=== PATIENT | female | born 1950 | race Caucasian/White ===

== ENCOUNTER 2021-09-13 08:46 | Outpatient (CLI) | payer MEDICARE, BC, SELFPAY ==
[2021-09-13 14:40] LABS: Chloride* 100 mmol/L (96-114); Potassium* 4.3 mmol/L (3.6-5.1); Sodium* 138 mmol/L (135-149)
[2021-09-13 14:42] LABS: Carbon Dioxide* 32 mmol/L (20-32); Cholesterol* 160 mg/dL (90-199); Creatinine* 0.7 mg/dL (0.5-1.5); Estimated Glomerular Filt Rate 94 ml/min
[2021-09-13 14:43] LABS: Blood Urea Nitrogen* 22 mg/dL (7-30); Calcium* 9.6 mg/dL (8.4-10.6); Glucose* 164 mg/dL (60-115); HDL Cholesterol* 52 mg/dL (>=50); LDL Cholesterol Calculated 84 mg/dL (<100); Triglycerides* 121 mg/dL (40-149)
== END 2021-09-13 08:47 | disposition home or self-care (01) ==
LOC: LONREF 08:48
PROVIDERS: PCP Family Medicine; Visit Provider Family Medicine
DX: I10 Essential (primary) hypertension (principal); E78.5 Hyperlipidemia, unspecified
CPT/HCPCS: 80048; 80061

== ENCOUNTER 2021-11-09 13:35 | Outpatient (CLI) | payer MEDICARE, BC, SELFPAY ==
--- NOTE | 2021-11-09 14:00 | CRLHL7_ITS ---
For Patients: As a result of the Century Cures Act, medical imaging exams and procedure reports are released immediately into your electronic medical record. You may view this report before your referring provider. If you have questions, please contact your health care provider. BILATERAL SCREENING MAMMOGRAM WITH COMPUTER-AIDED DETECTION AND TOMOSYNTHESIS TECHNIQUE: CC and MLO views were obtained. These mammographic images have been obtained using full-field digital technique. These mammographic images were interpreted with the benefit of computer-aided detection. Breast Tomosynthesis was used in this interpretation. COMPARISON FILM: 08/22/20, 03/24/18, 12/26/16. FINDINGS: There are scattered areas of fibroglandular density IMPRESSION: There is no radiographic evidence for malignancy. ASSESSMENT: BI-RADS Category 1: Negative RECOMMENDATION: Routine screening mammogram in 1 year. A lay language report of this examination will be provided to the patient. Tremaine Cook M.D. Diagnostic Radiologist [email or web address] PAUL/Dictated by: Tremaine Cook MD @ 11/10/2021 8:10:00 AM (Electronically Signed)
== END 2021-11-09 13:36 | disposition home or self-care (01) ==
PROVIDERS: PCP Family Medicine; Visit Provider Family Medicine
DX: Z12.31 Encounter for screening mammogram for malignant neoplasm of breast (principal)
CPT/HCPCS: 77063; 77067

== ENCOUNTER 2021-11-20 08:37 | Outpatient (CLI) | payer MEDICARE, BC, SELFPAY ==
[2021-11-20 13:21] LABS: Chloride* 98 mmol/L (96-114); Potassium* 4.6 mmol/L (3.6-5.1); Sodium* 139 mmol/L (135-149)
[2021-11-20 13:24] LABS: Blood Urea Nitrogen* 17 mg/dL (7-30); Carbon Dioxide* 33 mmol/L (20-32); Creatinine* 0.7 mg/dL (0.5-1.5); Estimated Glomerular Filt Rate 94 ml/min
[2021-11-20 13:25] LABS: Calcium* 9.8 mg/dL (8.4-10.6); Glucose* 158 mg/dL (60-115)
[2021-11-20 15:28] LABS: SARS PCR* Negative SARS-CoV-2 (Negative)
== END 2021-11-20 08:38 | disposition home or self-care (01) ==
PROVIDERS: PCP Family Medicine; Visit Provider Family Medicine
DX: Z20.822 Contact with and (suspected) exposure to COVID-19 (principal); Z01.818 Encounter for other preprocedural examination
CPT/HCPCS: 80048; 87635

== ENCOUNTER 2021-11-22 06:36 | Day surgery (SDC) | payer MEDICARE, BC, SELFPAY ==
[2021-11-22] MEDS: TETRACAINE 0.5% OPHTH 1 DROP EYE-LEFT ×2 (07:00→07:05)
[2021-11-22] MEDS: KETOROLAC OPHTH 0.5% 1 DROP EYE-LEFT ×3 (07:00→07:10)
[2021-11-22 07:18] VITALS: BMI 33.6
[2021-11-22 07:22] VITALS: BP 141/76; PULSE 57; RESP 18; TEMP 36.7; O2SAT 97
[2021-11-22] MEDS: SODIUM CHLORIDE 0.9 % (FLUSH) 10 ML SYRINGE IVF (07:37)
--- NOTE | 2021-11-22 07:39 | SUR.PREOP ---
The eye drops brought by the patient (Ketorolac and Prednisolone) are examined and I have determined they are labeled by the patient's pharmacy for this patient as prescribed by the surgeon. The bottles are intact, recently obtained and appear to be correct. miles castro rn
[2021-11-22] MEDS: TETRACAINE 0.5% OPHTH 2 DROP EYE-LEFT (07:58)
[2021-11-22] MEDS: BALANCED SALT IRRIG SOLN 15 ML EYE-LEFT (08:00)
[2021-11-22 08:20] VITALS: BP 113/89; PULSE 54; RESP 20; TEMP 36.2; O2SAT 96
--- NOTE | 2021-11-22 08:29 | W.ANESCHARGE ---
Anesthesia Charges Start Date/Time Anesthesia Start Date: 11/22/21 Anesthesia Start Time: 08:23 Stop Date/Time Anesthesia Stop Date: 11/22/21 Anesthesia Stop Time: 08:53 Summary Emergency: No
--- NOTE | 2021-11-22 09:49 | P.OPTPRC_ITS ---
Procedure Note Date of procedure: 11/22/21 Will [facility] bill your pro fee for this procedure?: Yes Procedure Description: SURGEON: Abi Gonzalez MD PREOPERATIVE DIAGNOSIS: Nuclear sclerotic cataract, left eye. POSTOPERATIVE DIAGNOSIS: Nuclear sclerotic cataract, left eye. NAME OF OPERATION: Phacoemulsification of cataract with posterior chamber intraocular lens implantation in the left eye. ANESTHESIA: Topical. ESTIMATED BLOOD LOSS: Less than 2 cc. COMPLICATIONS: None. PATHOLOGY SPECIMEN: None. INDICATIONS: See consult note for details. The risks, benefits and alternatives of the procedure were explained to the patient, who elected to proceed and sign ed informed consent to do so. PROCEDURE: The patient was brought to the pre-holding area where the left eye was identified as the operative eye. I placed my initials above this eye. The patient received eye drops consisting of 0.5% tetracaine, 1% tropicamide, 10% phenylephrine, and 0.5% ketorolac. The patient was then brought to the operating room where the left eye was again identified as the operative eye. The eye was prepped with Betadine and draped in the usual sterile ophthalmic fashion. A #15 super-sharp blade was used to create a paracentesis site. 1% non-preserved intracameral lidocaine was injected into the anterior chamber. Endocoat was injected into the anterior chamber. A 2.4 mm keratome was used to create a three-plane self-sealing incision 1 mm anterior to the temporal limbus. A cystotome was used to create an anterior capsular leaflet. The Utrata forceps were used to extend this to form a continuous curvilinear capsulorrhexis. Hydrodissection was performed. The cataract was removed with phacoemulsification using the smohjs-hju-qxyezdl technique. The irrigation and aspiration tip was used to remove the remaining cortex. Healon was injected into the capsular bag. An KACI ZCB00 intraocular lens of 20.5 diopters was injected into the capsular bag. The irrigation and aspiration tip was used to remove the remaining viscoelastic. Balanced salt solution on a cannula was used to hydrate the wound, and the wound was found to be watertight. The pupil was noted to be round. DISPOSITION: The patient was taken to the recovery room and discharged to home in stable condition. The patient was instructed to call me or go to the emergency department with any sudden change, including dramatic loss of vision, severe pain in the eye or eyebrow region, nausea, or vomiting. The patient will follow up in the clinic tomorrow morning. Surgeon: Abi Gonzalez MD
== END 2021-11-22 08:50 | disposition home or self-care (01) ==
PROVIDERS: PCP Family Medicine; Visit Provider Ophthalmology
PROC: (CPT 66984; principal; 2021-11-22 06:45)
DX: H25.12 Age-related nuclear cataract, left eye (principal)
CPT/HCPCS: 66984; 00142; 01402; 82962; A9270; J2250; J3010; V2632

== ENCOUNTER 2021-12-04 09:05 | Outpatient (CLI) | payer MEDICARE, BC, SELFPAY ==
[2021-12-04 14:39] LABS: SARS PCR* Negative SARS-CoV-2 (Negative)
== END 2021-12-04 09:06 | disposition home or self-care (01) ==
LOC: LONREF 09:05
PROVIDERS: PCP Family Medicine; Visit Provider Ophthalmology
DX: Z20.822 Contact with and (suspected) exposure to COVID-19 (principal)
CPT/HCPCS: 87635

== ENCOUNTER 2021-12-06 06:47 | Day surgery (SDC) | payer MEDICARE, BC, SELFPAY ==
[2021-12-06] MEDS: TETRACAINE 0.5% OPHTH 1 DROP EYE-RIGHT ×2 (07:10→07:18)
[2021-12-06] MEDS: KETOROLAC OPHTH 0.5% 1 DROP EYE-RIGHT ×3 (07:16→07:31)
[2021-12-06 07:18] VITALS: BMI 33.6
[2021-12-06 07:21] VITALS: BP 151/80; PULSE 53; RESP 16; TEMP 36.5; O2SAT 97
[2021-12-06] MEDS: TETRACAINE 0.5% OPHTH 2 DROP EYE-RIGHT (07:58)
[2021-12-06] MEDS: BALANCED SALT IRRIG SOLN 15 ML EYE-RIGHT (08:02)
[2021-12-06 08:23] VITALS: BP 112/87; PULSE 48; RESP 16; TEMP 36.6; O2SAT 97
--- NOTE | 2021-12-06 08:24 | W.ANESCHARGE ---
Anesthesia Charges Start Date/Time Anesthesia Start Date: 12/06/21 Anesthesia Start Time: 07:55 Stop Date/Time Anesthesia Stop Date: 12/06/21 Anesthesia Stop Time: 08:25 Summary Emergency: No
--- NOTE | 2021-12-06 08:32 | P.OPTPRC_ITS ---
Procedure Note Date of procedure: 12/06/21 Will [facility] bill your pro fee for this procedure?: Yes Procedure Description: SURGEON: Abi Gonzalez MD PREOPERATIVE DIAGNOSIS: Nuclear sclerotic cataract, right eye. POSTOPERATIVE DIAGNOSIS: Nuclear sclerotic cataract, right eye. NAME OF OPERATION: Phacoemulsification of cataract with posterior chamber intraocular lens implantation in the right eye. ANESTHESIA: Topical. ESTIMATED BLOOD LOSS: Less than 2 cc. COMPLICATIONS: None. PATHOLOGY SPECIMEN: None. INDICATIONS: See consult note for details. The risks, benefits and alternatives of the procedure were explained to the patient, who elected to proceed and s igned informed consent to do so. PROCEDURE: The patient was brought to the pre-holding area where the right eye was identified as the operative eye. I placed my initials above this eye. The patient received eye drops consisting of 0.5% tetracaine, 1% tropicamide, 10% phenylephrine, and 0.5% ketorolac. The patient was then brought to the operating room where the right eye was again identified as the operative eye. The eye was prepped with Betadine and draped in the usual sterile ophthalmic fashion. A #15 super-sharp blade was used to create a paracentesis site. 1% non-preserved intracameral lidocaine was injected into the anterior chamber. Endocoat was injected into the anterior chamber. A 2.4 mm keratome was used to create a three-plane self-sealing incision 1 mm anterior to the temporal limbus. A cystotome was used to create an anterior capsular leaflet. The Utrata forceps were used to extend this to form a continuous curvilinear capsulorrhexis. Hydrodissection was performed. The cataract was removed with phacoemulsification using the fhochj-but-rylnyrw technique. The irrigation and aspiration tip was used to remove the remaining cortex. Healon was injected into the capsular bag. An KACI ZCB00 intraocular lens of 21.0 diopters was injected into the capsular bag. The irrigation and aspiration tip was used to remove the remaining viscoelastic. Balanced salt solution on a cannula was used to hydrate the wound, and the wound was found to be watertight. The pupil was noted to be round. DISPOSITION: The patient was taken to the recovery room and discharged to home in stable condition. The patient was instructed to call me or go to the emergency department with any sudden change, including dramatic loss of vision, severe pain in the eye or eyebrow region, nausea, or vomiting. The patient will follow up in the clinic tomorrow morning. Surgeon: Abi Gonzalez MD
--- NOTE | 2021-12-06 08:40 | W.ANESCHARGE ---
Anesthesia Charges Start Date/Time Anesthesia Start Date: 12/06/21 Anesthesia Start Time: 07:55 Stop Date/Time Anesthesia Stop Date: 12/06/21 Anesthesia Stop Time: 08:25 Summary Emergency: No
== END 2021-12-06 09:00 | disposition home or self-care (01) ==
PROVIDERS: PCP Family Medicine; Visit Provider Ophthalmology
PROC: (CPT 66984; principal; 2021-12-06 06:45)
DX: H25.11 Age-related nuclear cataract, right eye (principal)
CPT/HCPCS: 66984; 00142; A9270; J2250; J3010; V2632

== ENCOUNTER 2022-08-14 08:22 | Outpatient (CLI) | payer MEDICARE, BC, SELFPAY | END 2022-08-14 08:23 | disposition home or self-care (01) | PROVIDERS: PCP Family Medicine; Visit Provider Family Medicine | DX: E11.9 Type 2 diabetes mellitus without complications (principal); I10 Essential (primary) hypertension; E78.5 Hyperlipidemia, unspecified | CPT/HCPCS: 80048; 80061 ==

== ENCOUNTER 2023-07-29 09:33 | Outpatient (CLI) | payer MEDICARE, BC, SELFPAY | END 2023-07-29 09:34 | disposition home or self-care (01) | PROVIDERS: PCP Family Medicine; Visit Provider Family Medicine | DX: E78.2 Mixed hyperlipidemia (principal); E11.65 Type 2 diabetes mellitus with hyperglycemia; R53.83 Other fatigue; Z13.29 Encounter for screening for other suspected endocrine disorder | CPT/HCPCS: 80048; 80061; 84443 ==

== ENCOUNTER 2023-08-15 07:19 | Day surgery (SDC) | payer MEDICARE, BC, SELFPAY ==
[2023-08-15] VITALS (23 sets, daily range): BP systolic 94–144; BP diastolic 54–75; PULSE 53–71; RESP 12–20; TEMP 36.1–37; O2SAT 93–99; BMI 32.9
[2023-08-15] MEDS: LACTATED RINGERS 1000 ML 1,000 ML 100 ML IV ×3 (08:05→12:00)
[2023-08-15] MEDS: SODIUM CHLORIDE 0.9 % (FLUSH) 10 ML SYRINGE IVF (08:07)
[2023-08-15] MEDS: CELECOXIB 200 MG CAPSULE PO (08:15)
[2023-08-15] MEDS: OXYCODONE (CR) 10 MG TAB.ER.12H PO (08:15)
[2023-08-15] MEDS: ACETAMINOPHEN 500 MG TABLET 1000 MG PO ×3 (08:15→20:11)
[2023-08-15] MEDS: MIDAZOLAM HCL 1 MG/ML inj IVP (08:27)
[2023-08-15] MEDS: fentaNYL 100 MCG/2 ML inj IVP (08:27)
--- NOTE | 2023-08-15 08:31 | SUR.PREOP ---
TIME?OUT:?821, left knee PT/RN/MDA?VERIFICATION?OF?SURGICAL?SITE,?PROCEDURE,?AND?CONSENT OBTAINED?PRIOR?TO?INVASIVE?PROCEDURE.
[2023-08-15] MEDS: methylPREDNISolone acetate 40 MG/ML VIAL INTRA-ARTI (09:35)
[2023-08-15] MEDS: TRANEXAMIC ACID 100 MG/ML INJ 1000 MG IV (09:41)
[2023-08-15] MEDS: CEFAZOLIN 2 GM INJ IVP (09:41)
--- NOTE | 2023-08-15 10:12 | W.PM.NB ---
Nerve Block Nerve Block Time Seen by Provider: 08:30 Date Seen: 08/15/23 Type of block requested by surgeon for post-operative analgesia: adductor canal Side: left Time out performed: Yes Verification of patient name: Yes Verification of date of : Yes Site marking: site marked Name of person performing procedure: Dandre Continuous monitoring Was continuous monitoring of O2 sat, B/P, chain builder loom control, recorded every 15 minutes?: Yes Procedure Checklist: sterile prep, needles and gloves Ultrasound guided. Images saved: Yes Medications given in 5ml increments after negative aspiration: Ropivicaine %: 0.5 mL: 20 Needle gauge: 20 Decadron (mg): 10 Precedex (mcg): 25 Patient tolerated procedure well: Yes Additional comments: Needle noted adjacent to nerve Block Charges Block Charge (with Pro Fee): Femoral Nerve Use of Ultrasound Machine for Block: Yes- US Guidance/pain block
--- NOTE | 2023-08-15 10:12 | W.PM.NB ---
Nerve Block Nerve Block Time Seen by Provider: 08:30 Date Seen: 08/15/23 Type of block requested by surgeon for post-operative analgesia: geniculars Side: left Time out performed: Yes Verification of patient name: Yes Verification of date of : Yes Site marking: site marked Name of person performing procedure: Dandre Continuous monitoring Was continuous monitoring of O2 sat, B/P, vehicle monitor technician, recorded every 15 minutes?: Yes Procedure Checklist: sterile prep, needles and gloves Medications given in 5ml increments after negative aspiration: Ropivicaine %: 0.5 mL: 9 Needle gauge: 25 Patient tolerated procedure well: Yes Block Charges Block Charge (with Pro Fee): Genicular Nerve Block Use of Ultrasound Machine for Block: No
--- NOTE | 2023-08-15 10:13 | W.ANESCHARGE ---
Anesthesia Charges Start Date/Time Anesthesia Start Date: 08/15/23 Anesthesia Start Time: 09:17 Stop Date/Time Anesthesia Stop Date: 08/15/23 Anesthesia Stop Time: 11:38 Summary Extremes of Age - Over 70 or under 1: MDA
--- NOTE | 2023-08-15 10:48 | CRLHL7_ITS ---
For Patients: As a result of the Cures Act, medical imaging exams and procedure reports are released immediately into your electronic medical record. You may view this report before your referring provider. If you have questions, please contact your health care provider. Indication: Postop TKA. Technique: Two views left knee Comparison: None. Findings: Left knee arthroplasty in anatomic alignment. No periprosthetic lucency or fracture. Expected postsurgical soft tissue changes. Impression: Left knee arthroplasty without radiographic evidence of complication. Dictated by Carlos Kauffman MD @ 08/15/2023 12:35:12 PM (Electronically Signed)
--- NOTE | 2023-08-15 10:50 | PM.ORPRC ---
Procedure Note Date of procedure: 08/15/23 Procedure: PREOPERATIVE DIAGNOSIS: Left knee osteoarthritis, right knee osteoarthritis POSTOPERATIVE DIAGNOSIS: Left knee osteoarthritis, right knee osteoarthritis NAME OF OPERATION: Left total knee arthroplasty, right knee steroid injection SURGEON: Mariano Gonzalez MD WIRELESS WATCHER: Hailee Donaldson PA-C ANESTHESIA: Spinal ESTIMATED BLOOD LOSS: 0 mL COMPLICATIONS: None SPECIMENS: None DRAINS: None PREOPERATIVE ANTIBIOTICS: Ancef 2 grams, antibiotic impregnated cement IMPLANTS: 1. J&J Attune # 5 posterior stabilized femur 2. #4 fixed-bearing tibia 3. # 5 posterior stabilized, 10 mm fixed-bearing polyethylene 4. 38 patella INDICATIONS: The patient is a 72-year-old with a longstanding history of severe, unrelenting left knee pain secondary to end-stage (grade IV) left knee osteoarthritis. Despite appropriate nonoperative management, including activity modification, anti-inflammatories, orte-qfg-pnnsoda pain medication, bracing, physical therapy, and injections they continue to have pain and disability. Operative intervention was offered. The risks, benefits and expected outcomes were discussed in detail. These included but were not limited to: Infection, bleeding, injury to blood vessel or nerve, venous thromboembolism. All questions were answered to their satisfaction. Use of an assistant women's tennis coach was necessary throughout the case for patient positioning and safety, soft tissue retraction, and closure. PROCEDURE: Spinal anesthesia was administered. The patient was placed supine on the operating table. The assistant women's tennis coach made sure the patient was positioned appropriately. The right knee was prepped in the usual fashion. The knee joint was infiltrated with 4 mL 0.25% Marcaine without epinephrine, 40 mg Depo-Medrol. The left lower extremity was prepped and draped in the usual sterile fashion. The limb was exsanguinated with the Jesus bandage. The pneumatic tourniquet was inflated to 300 mmHg. A standard anterior incision was made with the knee in flexion. Subcutaneous dissection was sharply taken through fascial layer #1. Full-thickness medial and lateral flaps were elevated. The assistant women's tennis coach retracted the soft tissues and protected them throughout the case. A standard subvastus approach was made. The patella was everted. The infrapatellar fat pad was debrided. The menisci and cruciate ligaments were sharply d?brided. Marginal osteophytes were d?brided with the rongeur. The drill was used to penetrate the femoral canal. The canal was aspirated and irrigated with pulse lavage. The intramedullary femoral guide was placed for a 5-degree valgus cut, removing 10 mm off the distal femur. The saw was used to make the cut. Whitesides line and the trans epicondylar axis were marked. The femoral sizing guide was pinned onto the distal femur. Three degrees of external rotation nicely parallels the transepicondylar axis. Pins were placed for posterior referencing. The four-in-one cutting guide was pinned onto the distal femur. The anterior, posterior, and chamfer cuts were made. The assistant women's tennis coach protected the collateral ligaments. The box cutting guide was pinned. The box cuts were made. The boxed trial was placed and was an excellent fit. Drill holes for the lugs were made. Attention was then turned to the proximal tibia. The extramedullary tibial guide was placed for a neutral varus/valgus cut with 5 degrees of posterior slope, removing 2 mm based off the medial tibial surface. The assistant women's tennis coach protected the collateral ligaments and the neurovascular bundle. The saw was used to make the cut. Trial components were placed. The knee was nicely balanced in both flexion and extension. The trial components were removed. The tray was placed in appropriate rotation, parallel to our tibial cutting pins. It was pinned by the assistant women's tennis coach and the drill and the punch were used. The tray was removed. The punch was used again. We placed a bone plug in the femoral canal. Attention was then turned to the patella. [place] patellar thickness was 23 mm. The lobster claw resection guide was used with the 9.5 mm steven. The saw was used to make the cut. Drill holes were made by the assistant women's tennis coach. The trial was placed and was an excellent fit. Cancellous surfaces were irrigated with pulse lavage and thoroughly dried by the assistant women's tennis coach. We cemented the tibial component, then the femoral component. We impacted the 10 mm polyethylene onto the tibial tray. The knee was brought into full extension. We then cemented the patellar component. Excessive cement was removed. The cement was allowed to harden. The knee was taken through a range of motion and was found to be nicely balanced in both flexion and extension. The patella tracks centrally. The assistant women's tennis coach did a three minute dilute Betadine solution soak. The assistant women's tennis coach irrigated the wound with 3 liters of normal saline via pulse lavage. The assistant women's tennis coach reapproximated the extensor mechanism with #1 Vicryl in an interrupted dxmvab-ot-xaliw fashion. The assistant women's tennis coach then ran the extensor mechanism with a #1 PDO Stratafix. The assistant women's tennis coach closed the subcutaneous tissues with a 3-0 Stratafix and the skin with a running 3-0 Stratafix in a subcuticular fashion. Glue was used to seal the skin. The assistant women's tennis coach placed a dry dressing. Sponge and needle counts were correct x2. The patient tolerated the procedure well. There were no apparent complications. They were carefully transferred to the hospital bed and taken to the postanesthesia care unit in satisfactory condition. PLAN: The patient will be mobilized with physical therapy. Aspirin will be used for DVT prophylaxis. They will be discharged to home once medically appropriate.
--- NOTE | 2023-08-15 11:38 | W.ANESCHARGE ---
Anesthesia Charges Start Date/Time Anesthesia Start Date: 08/15/23 Anesthesia Start Time: 09:17 Stop Date/Time Anesthesia Stop Date: 08/15/23 Anesthesia Stop Time: 11:38 Summary Extremes of Age - Over 70 or under 1: TELECOM ENGINEER
[2023-08-15] MEDS: LACTATED RINGERS 1000 ML 1,000 ML 75 ML IV (12:56)
[2023-08-15] MEDS: OXYCODONE 5 MG TABLET PO ×5 (14:02→22:06)
--- NOTE | 2023-08-15 15:05 | P.IMCN_ITS ---
Date of Consult Patient: [facility] Patient Consult date: 08/15/23 Requesting Physician: Orthopedics Primary Care Provider: Robe Yung MD Consult Narrative Reason for consult: Medical management of comorbidities Narrative: Edel Peterson is a 72 year old female who presented to the hospital today for an elective L TKA. There were no surgical or anesthetic complications noted during procedure. Patient's H&P reviewed, PCP is Dr Yung. Past medical history significant for: noninsulin dependent DM2, hyperlipidemia, essential HTN. History of blood clots: No Postoperative plan: Home with daughter She is feeling good when I see her postoperatively, has no concerns for the hospitalist team. Review of Systems Status of ROS: Reports: 10 or more systems reviewed and unremarkable except as noted in History and below [facility] Medical History (Updated 08/15/23 @ 16:57 by Jovanna Weiss MD) Lumbar compression fracture ?S32.000A - Wedge compression fracture of unspecified lumbar vertebra, initial encounter for closed fracture (ICD-10) Eustachian tube dysfunction ?H69.80 - Other specified disorders of Eustachian tube, unspecified ear (ICD- 10) Osteoporosis ?M81.0 - Age-related osteoporosis without current pathological fracture (ICD- 10) Restless leg ?G25.81 - Restless legs syndrome (ICD-10) Anxiety (09/23/08) ?F41.9 - Anxiety disorder, unspecified (ICD-10) Hypertriglyceridemia (09/23/08) ?E78.1 - Pure hyperglyceridemia (ICD-10) Hyperlipidemia (03/11/06) ?E78.5 - Hyperlipidemia, unspecified (ICD-10) Hypertension (09/23/08) ?I10 - Essential (primary) hypertension (ICD-10) Type 2 diabetes mellitus (09/23/08) ?E11.9 - Type 2 diabetes mellitus without complications (ICD-10) Surgical History (Updated 08/15/23 @ 17:01 by Jovanna Weiss MD) History of bilateral cataract extraction ?Z98.41 - Cataract extraction status, right eye (ICD-10) ?Z98.42 - Cataract extraction status, left eye (ICD-10) History of arthroplasty of finger of left hand (02/04/13) ?Z96.692 - Finger-joint replacement of left hand (ICD-10) S/P trigger finger release (03/11/14) ?Z98.890 - Other specified postprocedural states (ICD-10) H/O arthroscopy of left knee (08/11/14) ?Z98.890 - Other specified postprocedural states (ICD-10) S/P breast biopsy, left (11/22/15) ?Z98.890 - Other specified postprocedural states (ICD-10) S/P tendon repair ?Z98.890 - Other specified postprocedural states (ICD-10) H/O thumb surgery (03/11/14) ?Z98.890 - Other specified postprocedural states (ICD-10) History of tubal ligation (09/23/08) ?Z98.51 - Tubal ligation status (ICD-10) History of tonsillectomy (09/23/08) ?Z90.89 - Acquired absence of other organs (ICD-10) History of endometrial ablation (08/02/04) ?Z98.890 - Other specified postprocedural states (ICD-10) History of colonoscopy ?Z98.890 - Other specified postprocedural states (ICD-10) Social History What is your current living situation?: I presently have a place to live Problems where you live: no known problems In past 12 months, lack of transportation kept you from medical appts, meetings, work, or getting things needed for daily living: no In the past 12 mos, have been you worried that your food would run out before you had money to buy more?: never true In the past 12 mos, the food you bought just didn't last and you didn't have money to buy more?: never true Highest level of school completed/degree received: decline to answer Smoking Status: Never smoker Do you use any of these nicotine containing products: None Second hand tobacco smoke exposure: No How often do you have a drink containing alcohol: monthly or less Alcohol type: beer How many standard drinks containing alcohol do you have on a typical day: 1 or 2 How often do you have six or more drinks on one occasion: Never AUDIT-C Alcohol total score: 1 Non-prescribed substance use: denies use Caffeine: Yes How often does anyone, including family, friends and others, physically hurt you : never How often does anyone, including family, friends and others, insult or talk down to you: never How often does anyone, including family, friends and others, threaten you with harm: never How often does anyone, including family, friends and others, scream or curse at you: never Little interest or pleasure in doing things: several days Feeling down, depressed, or hopeless: several days Are you using contraception or practicing any form of control: No service: No Meds Home Medications and Allergies Home Medications ?Medication ?Instructions ?Recorded ?Confirmed ?Type cholecalciferol (vitamin D3) 50 2,000 unit PO DAILY 09/11/21 08/15/23 History mcg (2,000 unit) capsule aspirin 81 mg tablet,delayed 81 mg PO QDAY 09/12/21 08/15/23 History release calcium carbonate (Calcium 600) 1,200 mg PO QDAY 09/12/21 08/15/23 History coenzyme Q10 100 mg capsule mg PO DAILY 09/12/21 07/29/23 History glucosamine HCl 1,500 mg tablet 1,500 mg PO QDAY 09/12/21 08/15/23 History multivitamin (Daily Multi-Vitamin 1 tab PO QDAY 09/12/21 08/15/23 History tablet) zinc gluconate 30 mg tablet 30 mg PO QDAY 09/12/21 08/15/23 History glipizide 5 mg tablet 5 mg PO DAILY 02/04/23 08/15/23 History magnesium 250 mg tablet 500 mg PO QDAY 02/19/23 08/15/23 History ropinirole 0.5 mg tablet 0.5 mg PO QHS PRN 02/19/23 08/15/23 History Allergies Allergy/AdvReac Type Severity Reaction Status Date / Time nickel Allergy Intermediate Rash Verified 08/15/23 07:30 penicillin V Allergy Mild Rash Verified 08/15/23 07:30 Exam Narrative: Exam Narrative: GEN: Alert and oriented, nontoxic. She is sitting comfortably in bedside chair HEENT: EOMIs bilaterally, no scleral icterus CV: RRR, No concerning murmurs R: LCTA bilaterally without concerning wheezing, air movement is adequate Ext: wwp, no concerning edema Skin: No concerning skin lesions or rashes on exposed skin Neuro: Nonfocal Psych: Appropriate Const: Vital Signs, click to edit/add: Vital Signs - 24 hr 08/15/23 07:47 08/15/23 08:25 08/15/23 08:36 Temperature 97.9 F Pulse Rate 71 56 L 54 L Respiratory Rate 20 20 20 Blood Pressure 144/63 H 143/67 H 110/64 Pulse Oximetry 96 97 99 Oxygen Delivery Me thod Room Air Nasal Cannula Nasal Cannula Oxygen Flow Rate 3 3 08/15/23 11:35 08/15/23 11:40 08/15/23 11:45 Temperature 98.4 F Pulse Rate 55 L 54 L 57 L Respiratory Rate 12 12 12 Blood Pressure 94/59 L 99/54 L 99/73 Pulse Oximetry 94 94 95 Oxygen Delivery Me thod Room Air Room Air Room Air Oxygen Flow Rate 08/15/23 11:50 08/15/23 11:55 08/15/23 12:00 Temperature Pulse Rate 55 L 58 L 54 L Respiratory Rate 12 12 12 Blood Pressure 105/57 L 105/55 L 97/68 Pulse Oximetry 95 95 93 Oxygen Delivery Me thod Room Air Room Air Room Air Oxygen Flow Rate 08/15/23 12:00 08/15/23 12:00 08/15/23 12:05 Temperature 97.4 F L 97.4 F L 97.6 F Pulse Rate 54 L 53 L 54 L Respiratory Rate 14 16 12 Blood Pressure 98/61 113/74 104/62 Pulse Oximetry 95 96 94 Oxygen Delivery Me thod Room Air Room Air Room Air Oxygen Flow Rate 3 08/15/23 12:15 08/15/23 12:30 08/15/23 12:45 Temperature 97.4 F L 97 F L 97.4 F L Pulse Rate 55 L 57 L 56 L Respiratory Rate 14 16 16 Blood Pressure 110/63 108/61 110/67 Pulse Oximetry 95 94 95 Oxygen Delivery Me thod Room Air Room Air Room Air Oxygen Flow Rate 3 3 3 08/15/23 13:00 08/15/23 13:30 08/15/23 14:00 Temperature 97.4 F L 97.4 F L 97.5 F L Pulse Rate 56 L 53 L 61 Respiratory Rate 16 16 16 Blood Pressure 118/64 113/74 124/73 Pulse Oximetry 95 96 93 Oxygen Delivery Me thod Room Air Room Air Room Air Oxygen Flow Rate 3 3 Assessment and Plan Assessment and plan (1) Status post left knee replacement: Problem comment: - Dr. Gonzalez, 08/15/23 Status: Acute (2) Hypertriglyceridemia: Status: Acute (3) Hyperlipidemia: Status: Acute (4) Hypertension: Status: Acute (5) Type 2 diabetes mellitus: Problem comment: - [id number], last A1c 7.2 Status: Acute Plan - pain management and prophylaxis per orthopedic surgery team - continue home medications for comorbidities - anticipate routine postoperative course
[2023-08-15] MEDS: CEFAZOLIN 2 GM in 0.9 % SODIUM CHLORIDE Mini-bag 100 ML IVPB (16:55)
--- NOTE | 2023-08-15 18:25 | PC.NURSE ---
Nursing end of shift: Pt came BTF from PACU @ 1200. She is A&O, VSS and afebrile. Left knee dressing is covered by KAITY wrap- surgical site is MORGAN. Ice pack in place. Reports pain at 6-7/10 to anterior knee. PRN oxycodone given last @ 1800; providing adequate relief & pain comes down to 2-3/10 per pt. PIV in right hand is now SL and C/D/I as she is tolerating PO intake with no nausea. She is Ax1 with 2ww and gait belt for ambulation & transfers and reports no dizziness. Pt is urinating independently. CMS intact and SCD?s in place while in bed. Plan to discharge home tomorrow, 08/15, with her daughter & grandchildren staying with her. ?
[2023-08-15] MEDS: SENNOSIDES 1 TAB TABLET 2 TAB PO (20:12)
[2023-08-15] MEDS: ASPIRIN 81 MG TABLET EC PO (20:12)
[2023-08-15] MEDS: SIMVASTATIN 40 MG TABLET PO (20:13)
[2023-08-16] VITALS: BP 120/82; PULSE 68; RESP 16; TEMP 37.4; O2SAT 95
[2023-08-16] MEDS: CEFAZOLIN 2 GM in 0.9 % SODIUM CHLORIDE Mini-bag 100 ML IVPB (01:03)
[2023-08-16] MEDS: OXYCODONE 5 MG TABLET PO ×4 (01:03→10:04)
[2023-08-16] MEDS: ACETAMINOPHEN 500 MG TABLET 1000 MG PO ×2 (01:33→10:00)
[2023-08-16 01:42] VITALS: BP 125/61; PULSE 63; RESP 16; TEMP 37.4; O2SAT 95
[2023-08-16 06:35] LABS: Basophils Percent Auto 0.1 % (0.0-3.0); Hematocrit 31.9 % (33.0-51.0); Hemoglobin* 10.1 gm/dL (12.0-16.0); Immature Granulocytes Pct Auto 0.1 %; Lymphocytes Percent Auto 11.2 % (20-44); Mean Corpuscular HGB Conc 32 gm/dL (32-36); Mean Corpuscular Hemoglobin 28 pg (26-34); Mean Corpuscular Volume 90 fL (80-100); Monocytes Percent Auto 10.9 % (0.0-11.0); Neutrophils Percent Auto 77.7 % (42.0-72.0); Platelet Count* 294 K/uL (140-440); RDW Coefficient of Variation % 13.6 % (11.5-15.5); Red Blood Count 3.56 m/uL (4.00-5.20); White Blood Count* 13.35 K/uL (4.50-11.00)
[2023-08-16 06:44] LABS: Sodium* 134 mmol/L (135-149)
[2023-08-16 06:45] LABS: Potassium* 4.5 mmol/L (3.6-5.1)
[2023-08-16 06:47] LABS: Creatinine* 0.7 mg/dL (0.5-1.5); Estimated Glomerular Filt Rate 93 ml/min
[2023-08-16 06:48] LABS: Blood Urea Nitrogen* 25 mg/dL (7-30)
[2023-08-16 06:51] LABS: Slide Review Reflex No
[2023-08-16 06:53] LABS: INR 0.98 (0.91-1.10); Prothrombin Time 13.5 Seconds
--- NOTE | 2023-08-16 06:59 | PC.NURSE ---
END OF SHIFT NOTE: PT PLEASANT AND COOPERATIVE. A&Ox3. DENIES CP, SOB, N/V. AMBULATES WITH SBA AND 2WW, GB. VSS ON RA; AFEBRILE. ACTIVE ICE TO LEFT KNEE. LEFT KNEE PAIN 5-7/10 WITH RELIEF FROM SCHEDULED AND PRN PAIN MEDS. OXYCODONE SCANNED TWICE AT 2200, OMNICELL CHECKED FOR PREVIOUS DOSE REMOVED WITH CHARGE NURSE -LADAN Umana RN. VERIFIED THAT ORDERED 5MG X2TABS OF OXY REMOVED. CALL LIGHT WITHIN PT?S REACH.?
[2023-08-16 07:00] VITALS: BP 145/81; PULSE 66; RESP 16; TEMP 36.7; O2SAT 97
[2023-08-16] MEDS: glipiZIDE 5 MG TABLET PO (07:37)
--- NOTE | 2023-08-16 08:11 | PM.ORPN ---
Subjective Subjective Time Seen by Provider: 07:30 Date Seen: 08/16/23 Principal diagnosis: Post left total knee arthroplasty, right knee cortisone injection Interval history: Edel is comfortable this morning. She is ambulating well. She will discharge to home today. Ortho Exam Narrative Exam Narrative: Alert and oriented x3. Patient is in no acute distress. Converses without labored breathing. Hearing is grossly intact. Ambulates with a walker. Examination of the left knee shows the dressing is intact. Mild edema. CMS intact left lower extremity. Bilateral calves are soft and nontender. She is easily able to get out of the hospital bed, ambulate to the restroom this morning. Good quad control. Const Vital Signs, click to edit/add: Vital Signs - 24 hr 08/15/23 08:25 08/15/23 08:36 08/15/23 11:35 Temperature 98.4 F Pulse Rate 56 L 54 L 55 L Pulse Rate [Right Pulse Oximeter] Respiratory Rate 20 20 12 Blood Pressure 143/67 H 110/64 94/59 L Blood Pressure [Left Arm] Pulse Oximetry 97 99 94 Oxygen Delivery Method Nasal Cannula Nasal Cannula Room Air Oxygen Flow Rate 3 3 08/15/23 11:40 08/15/23 11:45 08/15/23 11:50 Temperature Pulse Rate 54 L 57 L 55 L Pulse Rate [Right Pulse Oximeter] Respiratory Rate 12 12 12 Blood Pressure 99/54 L 99/73 105/57 L Blood Pressure [Left Arm] Pulse Oximetry 94 95 95 Oxygen Delivery Method Room Air Room Air Room Air Oxygen Flow Rate 08/15/23 11:55 08/15/23 12:00 08/15/23 12:00 Temperature 97.4 F L Pulse Rate 58 L 54 L 54 L Pulse Rate [Right Pulse Oximeter] Respiratory Rate 12 12 14 Blood Pressure 105/55 L 97/68 98/61 Blood Pressure [Left Arm] Pulse Oximetry 95 93 95 Oxygen Delivery Method Room Air Room Air Room Air Oxygen Flow Rate 08/15/23 12:00 08/15/23 12:05 08/15/23 12:15 Temperature 97.4 F L 97.6 F 97.4 F L Pulse Rate 53 L 54 L 55 L Pulse Rate [Right Pulse Oximeter] Respiratory Rate 16 12 14 Blood Pressure 113/74 104/62 110/63 Blood Pressure [Left Arm] Pulse Oximetry 96 94 95 Oxygen Delivery Method Room Air Room Air Room Air Oxygen Flow Rate 3 3 08/15/23 12:30 08/15/23 12:45 08/15/23 13:00 Temperature 97 F L 97.4 F L 97.4 F L Pulse Rate 57 L 56 L 56 L Pulse Rate [Right Pulse Oximeter] Respiratory Rate 16 16 16 Blood Pressure 108/61 110/67 118/64 Blood Pressure [Left Arm] Pulse Oximetry 94 95 95 Oxygen Delivery Method Room Air Room Air Room Air Oxygen Flow Rate 3 3 3 08/15/23 13:30 08/15/23 14:00 08/15/23 15:00 Temperature 97.4 F L 97.5 F L Pulse Rate 53 L 61 Pulse Rate [Right Pulse Oximeter] 58 L Respiratory Rate 16 16 16 Blood Pressure 113/74 124/73 Blood Pressure [Left Arm] Pulse Oximetry 96 93 Oxygen Delivery Method Room Air Room Air Oxygen Flow Rate 3 08/15/23 15:00 08/15/23 15:00 08/15/23 16:00 Temperature 98.1 F 98 F Pulse Rate 58 L 61 Pulse Rate [Right Pulse Oximeter] Respiratory Rate 16 16 16 Blood Pressure 123/63 124/75 Blood Pressure [Left Arm] Pulse Oximetry 95 95 93 Oxygen Delivery Method Room Air Room Air Room Air Oxygen Flow Rate 08/15/23 17:00 08/15/23 18:10 08/15/23 19:24 Temperature 98.6 F 98 F 97.6 F Pulse Rate 67 61 Pulse Rate [Right Pulse Oximeter] 69 Respiratory Rate 16 16 16 Blood Pressure 122/69 111/61 Blood Pressure [Left Arm] 119/68 Pulse Oximetry 95 94 94 Oxygen Delivery Method Room Air Room Air Room Air Oxygen Flow Rate 08/15/23 20:11 08/15/23 20:55 08/16/23 00:00 Temperature 97.6 F 97.6 F Pulse Rate Pulse Rate [Right Pulse Oximeter] 68 Respiratory Rate 16 Blood Pressure Blood Pressure [Left Arm] Pulse Oximetry Oxygen Delivery Method Oxygen Flow Rate 08/16/23 00:00 08/16/23 00:00 08/16/23 01:42 Temperature 99.4 F 99.4 F Pulse Rate Pulse Rate [Right Pulse Oximeter] 68 63 Respiratory Rate 16 16 16 Blood Pressure Blood Pressure [Left Arm] 120/82 125/61 Pulse Oximetry 95 95 95 Oxygen Delivery Method Room Air Room Air Room Air Oxygen Flow Rate Assessment and Plan Assessment and plan (1) Status post left knee replacement: Problem details: - Dr. Gonzalez, 08/15/23 Status: Acute Assessment and Plan: Plan for discharge is today to home if they meet discharge criteria. DVT prophylaxis includes aspirin 81 mg twice daily x1 month, Compression stockings as needed for swelling. Frequent ambulation, every hour throughout the day. Remove dressing in 1 week. Observe wound and phone Orthopedics with any questions or concerns Return to clinic in 1 week for a wound check Return to clinic in 6 weeks with surgeon Minimize narcotic use. Wean off and discontinue soon as possible. Activities as tolerated. No strenuous activity. Outpatient physical therapy as scheduled. Ice and elevate the operative extremity. No restriction on ice.
[2023-08-16] MEDS: SENNOSIDES 1 TAB TABLET 2 TAB PO (10:01)
[2023-08-16] MEDS: PARoxetine 20 MG TABLET 40 MG PO (10:01)
[2023-08-16] MEDS: ASPIRIN 81 MG TABLET EC PO (10:01)
[2023-08-16] MEDS: FENOFIBRATE 145 MG TABLET 72.5 MG PO (10:07)
--- NOTE | 2023-08-16 12:02 | PC.NURSE ---
Discharge: Patient alert and oriented x4. Patient tolerated regular diet and drinking fluids with out c/o of nausea. Pain rates 8/10 but managed with PRN pain medication. Able to ambulate with a 2-wheeled walker, gait belt and stand by assist. Patient discharged to home at 1058 via wheelchair. Patient education given and discharge packet signed by patient and RN.
== END 2023-08-16 10:58 | disposition home or self-care (01) ==
LOC: OR 07:21 → MEDSURG 07:24
PROVIDERS: PCP Family Medicine; Visit Provider Orthopaedic Surgery
PROC: (CPT 27447; principal; 2023-08-15 08:45)
DX: M17.0 Bilateral primary osteoarthritis of knee (principal); G89.18 Other acute postprocedural pain; I10 Essential (primary) hypertension; E11.9 Type 2 diabetes mellitus without complications; M81.0 Age-related osteoporosis without current pathological fracture; E78.1 Pure hyperglyceridemia; E78.5 Hyperlipidemia, unspecified
CPT/HCPCS: 27447; 20610; 01402; 36415; 64447; 64454; 73560; 76942; 82565; 84132; 84295; 84520; 85025; 85610; 97110; 97116; 97161; 97165; 97530; 97535; 99100; A9270; C1776; J0690; J1010; J1100; J2250; J2704; J2795; J3010; J7120

== ENCOUNTER 2023-10-17 10:00 | Outpatient (RCR) | payer MEDICARE, BC, SELFPAY ==
--- NOTE | 2023-08-05 14:26 | PT.OPEX ---
PT [place] Outpatient Eval PT [facility] Outpatient Eval Start: 08/05/23 09:57 Freq: Status: Active Protocol: Document 08/05/23 11:13 SUSIE (Rec: 08/05/23 12:08 SUSIE [id number]) E-signed By Leandra Best DPT Physical Therapy Outpatient Evaluation Insurance Information Recert Due Date 11/03/23 Insurance Name Medicare B,[employer] Medical Diagnosis L knee OA L TKA 08/15/23 Treating Diagnosis L knee pain, impaired L knee ROM, impaired L knee/LE mobility/strength, limping/ antalgic gait Subjective Subjective Patient reports chronic L knee pain leading up to L TKA scheduled for 08/15/23. She has been wearing a brace on her L knee for support. She has not been using an AD. Amb without an AD with mildly limping, antalgic gait. She reports having a 4ww to use after surgery but feels she may need a FWW. She does not have a FWW or cane. States her daughter will be staying with her for at least a week after surgery. She has 3 stairs x 2 when entering from the tuck under garage. R railing and grab bars to use for support. States if she uses the back enter there are 3 stairs with R railing to enter to main level. Once inside, patient can stay on the main level. She has commode to use over the toilet . Walk in shower and tub shower, shower/tub chairs. She purchased a Pulsant ice cooler to use after surgery. Date of Last Physician Visit 06/19/23 Date of Surgery (If applicable) 08/15/23 Current Work Status Retired Precautions Treatment Precautions/Contraindications DM type II, HTN, depression, OA, osteoporosis Allergies - PCN, nickel Assessment Assessment/Impression Patient is a 72 year old female with L knee pain, impaired L knee ROM, impaired L knee/LE mobility/strength, limping/antalgic gait. She is scheduled for L TKA 08/15/23. She is seen in PT today for pre-op session to provide education/information on upcoming TKA surgery, safety information/HO, equipment instruction including use of FWW, and instruction in TKA exercises. Patient has a 4ww she would like to try after surgery but feels she will need a FWW at discharge. Patient instructed in and provided with handouts for TKA exercises, patient to perform them leading up to surgery. Reviewed PT/OT plan during hospital stay and patient is scheduled for OP PT post op. Patient's daughter will be staying with her for one week. 3 stairs x 2 with R railing and grab bars to enter from the garage. 3 stairs with R railing to enter from the back . Once inside, patient can stay on the main level. She has a commode to use over the toilet. Walk in shower and tub shower with shower chairs available to use after surgery . Patient would benefit from skilled PT for pain/sx management, improved knee ROM, improved knee/LE mobility/ strength, improved gait, balance/proprioception training, and establishment of HEP. Plan of Care Rehabilitation Potential Good Physical Therapy Goals 1. Patient will be educated in TKA pre/post-op safety, mobility, and exercises with HOs provided within one visit with patient returning to PT for post op treatment after L TKA surgery on 08/15/23. PT goals will be updated to TKA rehab goals when patient returns post op. Coordination/Communication With Referral Source Treatment Plan/Direct Interventions Gait Training,Manual Therapy, Therapeutic Exercises Frequency/Duration 1 pre-op session 2x/week post op Patient Will Be Discharged From Therapy Completion of LTG(s),Skills Plateau,Independent w/HEP, Independently Progressing Evaluation Billing Untimed Code Treatment Minutes 40 Complexity Moderate Certification Information Initial Certification Date 08/05/23 Ending Certification Date 11/03/23 Provider Signature Required Yes Provider Signature Shows Agreement With POC & Medical Necessity Physician NPI Number Write NPI# Here Physician Comment/Change : Physician Signature & Date Requested Please Sign/Date Here
== END 2024-02-14 23:59 | disposition home or self-care (01) ==
PROVIDERS: PCP Family Medicine; Visit Provider Orthopaedic Surgery
DX: M17.12 Unilateral primary osteoarthritis, left knee (principal); M25.562 Pain in left knee; Z74.09 Other reduced mobility; R26.89 Other abnormalities of gait and mobility; Z51.89 Encounter for other specified aftercare
CPT/HCPCS: 97110; 97162; 97164

== ENCOUNTER 2024-03-02 15:06 | Outpatient (CLI) | payer MEDICARE, BC, SELFPAY ==
--- NOTE | 2024-03-02 15:20 | CRLHL7_ITS ---
For Patients: As a result of the Century Cures Act, medical imaging exams and procedure reports are released immediately into your electronic medical record. You may view this report before your referring provider. If you have questions, please contact your health care provider. BILATERAL SCREENING MAMMOGRAM WITH COMPUTER-AIDED DETECTION AND TOMOSYNTHESIS TECHNIQUE: CC and MLO views were obtained. These mammographic images have been obtained using full-field digital technique. These mammographic images were interpreted with the benefit of computer-aided detection. Breast Tomosynthesis was used in this interpretation. COMPARISON FILM: 11/09/21, 08/22/20, 03/24/18. FINDINGS: There are scattered areas of fibroglandular density. IMPRESSION: There is no radiographic evidence for malignancy. ASSESSMENT: BI-RADS Category 1: Negative RECOMMENDATION: Routine screening mammogram in 1 year. A lay language report of this examination will be provided to the patient. Tremaine Cook M.D. Diagnostic Radiologist [email or web address] SP/Dictated by: Tremaine Cook MD @ 03/03/2024 9:23:00 AM (Electronically Signed)
== END 2024-03-02 15:07 | disposition home or self-care (01) ==
LOC: MAMMO 15:06
PROVIDERS: PCP Family Medicine; Visit Provider Family Medicine
DX: Z12.31 Encounter for screening mammogram for malignant neoplasm of breast (principal)
CPT/HCPCS: 77063; 77067

== ENCOUNTER 2024-03-19 09:01 | Outpatient (CLI) | payer MEDICARE, BC, SELFPAY | END 2024-03-19 09:02 | disposition home or self-care (01) | LOC: LKVREF 09:03 | PROVIDERS: PCP Family Medicine; Visit Provider Family Medicine | DX: I10 Essential (primary) hypertension (principal); Z01.818 Encounter for other preprocedural examination | CPT/HCPCS: 80048 ==

== ENCOUNTER 2024-04-17 12:25 | Outpatient (CLI) | payer MEDICARE, BC, SELFPAY ==
--- NOTE | 2024-04-17 14:07 | W.ANESCHARGE ---
Anesthesia Charges Start Date/Time Anesthesia Start Date: 04/17/24 Anesthesia Start Time: 13:40 Stop Date/Time Anesthesia Stop Date: 04/17/24 Anesthesia Stop Time: 14:11 Summary Extremes of Age - Over 70 or under 1: SUPERVISOR MIRROR FABRICATION Coding CPT Codes CPT Codes: MARISABEL LWR INTST NDSC NOS - 11959 ([id number]) P2 - PATIENT W/MILD SYST DISEASE, QK - RETAIL AGENT 2-4 CNCRNT ANEWayne PROC, QX - SUPERVISOR MIRROR FABRICATION SVC W/ MD MED DIRECTION Additional Codes: Summary - Extremes of Age - Over 70 or under 1: SUPERVISOR MIRROR FABRICATION ([id number])
--- NOTE | 2024-04-17 14:28 | W.ANESCHARGE ---
Anesthesia Charges Start Date/Time Anesthesia Start Date: 04/17/24 Anesthesia Start Time: 13:40 Stop Date/Time Anesthesia Stop Date: 04/17/24 Anesthesia Stop Time: 14:11 Summary Extremes of Age - Over 70 or under 1: MDA Coding CPT Codes CPT Codes: ANES LWR INTST NDSC NOS - 48787 ([id number]) P2 - PATIENT W/MILD SYST DISEASE, QK - MEDICAL CASE MANAGER 2-4 CNCRNT ANES PROC, QX - SOLAR DESIGNER/INSTALLER SVC W/ MD MED DIRECTION Additional Codes: Summary - Extremes of Age - Over 70 or under 1: MDA ([id number])
== END 2024-04-17 12:26 | disposition home or self-care (01) ==
LOC: OP CLINIC 12:26
PROVIDERS: PCP Family Medicine; Visit Provider Internal Medicine Gastroenterology
DX: Z12.11 Encounter for screening for malignant neoplasm of colon (principal); D12.0 Benign neoplasm of cecum; Z80.0 Family history of malignant neoplasm of digestive organs
CPT/HCPCS: 00811; 45385; 88305; 99100; J2704

== ENCOUNTER 2024-07-02 07:04 | Day surgery (SDC) | payer MEDICARE, BC, SELFPAY ==
[2024-07-02] VITALS (11 sets, daily range): BP systolic 90–154; BP diastolic 60–98; PULSE 62–77; RESP 14–22; TEMP 36.4–37; O2SAT 92–99; BMI 32.1
[2024-07-02] MEDS: SODIUM CHLORIDE 0.9 % (FLUSH) 10 ML SYRINGE IVF (08:00)
[2024-07-02] MEDS: LACTATED RINGERS 1000 ML 1,000 ML 100 ML IV (08:00)
[2024-07-02] MEDS: CEFAZOLIN 1 GM inj IVP (09:42)
[2024-07-02] MEDS: BUPIVACAINE 0.25% 30 ML INJECTION (10:10)
--- NOTE | 2024-07-02 10:12 | P.ORPRC_ITS ---
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 Operative intervention was recommended. The risks, benefits and expected outcomes were discussed in detail. These included but were not limited to: Infection, bleeding, injury to blood vessel or nerve, venous thromboembolism. All questions were answered to their satisfaction. PROCEDURE: Spinal anesthesia was administered. The patient was placed supine on the operating room table. The left lower extremity was prepped and draped in the usual sterile fashion. The limb was exsanguinated with the Jesus bandage. The pneumatic tourniquet was inflated to 300 mmHg. A standard anterolateral portal was established. The arthroscope was introduced. The working portal was established anteromedially. Diagnostic arthroscopy was performed with findings as follows: The patellar component is intact with circumferential scarring surrounding it. The femoral component is normal, the tibial polyethylene is normal. The scarring posterior to the patellar tendon was debrided with the radiofrequency probe and shaver. A superolateral portal was placed. Then we aggressively debrided around the patellar component and posterior to the quads tendon with the shaver and radiofrequency probe. Arthroscopic instruments were removed, the portal sites were closed with a 3-0 n ylon. Portals were injected with 0.25% Marcaine without epinephrine. A dry dressing was applied, the tourniquet was released. Sponge and needle counts were correct x 2. The patient tolerated the procedure well. There were no apparent complications. They were carefully transferred to the hospital bed and taken to the postanesthesia care unit in satisfactory condition. PLAN: The patient will be discharged to home. They may weightbear as tolerates. Range of motion will be unrestricted. They will follow up in the office in 2 weeks for a wound check and suture removal.
--- NOTE | 2024-07-02 10:22 | P.ANES_ITS ---
Anesthesia Charges Start Date/Time Anesthesia Start Date: 07/02/24 Anesthesia Start Time: 09:22 Stop Date/Time Anesthesia Stop Date: 07/02/24 Anesthesia Stop Time: 10:25 Summary Extremes of Age - Over 70 or under 1: MDA Coding CPT Codes CPT Codes: ANESTH KNEE JOINT SURGERY - 36590 ([id number]) P2 - PATIENT W/MILD SYST DISEASE, QK - WEB PRESS JOGGER 2-4 CNCRNT ANES PROC, QX - AIRCRAFT LAY OUT WORKER SVC W/ MD MED DIRECTION Additional Codes: Summary - Extremes of Age - Over 70 or under 1: MDA ([id number])
--- NOTE | 2024-07-02 10:22 | W.ANESCHARGE ---
Anesthesia Charges Start Date/Time Anesthesia Start Date: 07/02/24 Anesthesia Start Time: 09:22 Stop Date/Time Anesthesia Stop Date: 07/02/24 Anesthesia Stop Time: 10:25 Summary Extremes of Age - Over 70 or under 1: MDA Coding CPT Codes CPT Codes: ANESTH KNEE JOINT SURGERY - 52055 ([id number]) P2 - PATIENT W/MILD SYST DISEASE, QK - CHEMICAL DEPENDENCY NURSE 2-4 CNCRNT ANES PROC, QX - SUPPLIER QUALITY SVC W/ MD MED DIRECTION Additional Codes: Summary - Extremes of Age - Over 70 or under 1: MDA ([id number])
--- NOTE | 2024-07-02 10:31 | P.ANES_ITS ---
Anesthesia Charges Start Date/Time Anesthesia Start Date: 07/02/24 Anesthesia Start Time: 09:22 Stop Date/Time Anesthesia Stop Date: 07/02/24 Anesthesia Stop Time: 10:25 Summary Extremes of Age - Over 70 or under 1: SEVERITY OF ILLNESS COORDINATOR Coding CPT Codes CPT Codes: ANESTH KNEE JOINT SURGERY - 48401 ([id number]) P2 - PATIENT W/MILD SYST DISEASE, QX - SEVERITY OF ILLNESS COORDINATOR SVC W/ MD MED DIRECTION, QK - RESERVOIR ENGINEERING ADVISOR 2-4 CNCRNT ANES PROC Additional Codes: Summary - Extremes of Age - Over 70 or under 1: SEVERITY OF ILLNESS COORDINATOR ([id number])
--- NOTE | 2024-07-02 10:31 | W.ANESCHARGE ---
Anesthesia Charges Start Date/Time Anesthesia Start Date: 07/02/24 Anesthesia Start Time: 09:22 Stop Date/Time Anesthesia Stop Date: 07/02/24 Anesthesia Stop Time: 10:25 Summary Extremes of Age - Over 70 or under 1: BONE CRUSHER Coding CPT Codes CPT Codes: ANESTH KNEE JOINT SURGERY - 02395 ([id number]) P2 - PATIENT W/MILD SYST DISEASE, QX - BONE CRUSHER SVC W/ MD MED DIRECTION, QK - ETIQUETTE COACH 2-4 CNCRNT ANES PROC Additional Codes: Summary - Extremes of Age - Over 70 or under 1: BONE CRUSHER ([id number])
--- NOTE | 2024-07-02 10:43 | SUR.PHASEI ---
Patient awake 5 minutes into recovery area. Appropriate, minimal knee pain, stated maybe a 1. No complaints of nausea.
--- NOTE | 2024-07-02 10:49 | SUR.PHASEI ---
Patient meets discharge criteria from PACU
== END 2024-07-02 12:23 | disposition home or self-care (01) ==
LOC: OR 07:05
PROVIDERS: PCP Family Medicine; Visit Provider Orthopaedic Surgery
PROC: (CPT 29870; principal; 2024-07-02 09:00)
DX: M25.862 Other specified joint disorders, left knee (principal); Z96.652 Presence of left artificial knee joint; E11.9 Type 2 diabetes mellitus without complications; I10 Essential (primary) hypertension; E66.9 Obesity, unspecified; G25.81 Restless legs syndrome; E78.2 Mixed hyperlipidemia; Z68.32 Body mass index [BMI] 32.0-32.9, adult
CPT/HCPCS: 29877; 01400; 82962; 99100; J0665; J0690; J1100; J2250; J2405; J2704; J3010; J7120

== ENCOUNTER 2024-07-23 06:22 | Emergency (ER) | payer MEDICARE, BC, SELFPAY ==
[2024-07-23] VITALS (8 sets, daily range): BP systolic 144; BP diastolic 105; PULSE 63–79; RESP 12–22; TEMP 36.9; O2SAT 96–98; BMI 32.4
--- OUTSIDE RECORDS SUMMARY | 2024-07-23 06:25 | XMS_ITS | Clinical Summary ---
Author Organization [employer] [facility] Address [address] [place] [id number] Care Team Providers Care Extract Puller Name Role Phone Robe Yung MD Primary Care Provider Allergies Active Allergy Reactions Criticality Noted Date Comments Penicillins *Unknown - Childhood Rxn 04/29/2019 Medications alendronate (FOSAMAX) 70 mg tablet TAKE 1 TABLET BY MOUTH ONE TIME A WEEK 01/27/20 19 Active atenoloL (TENORMIN) 25 mg tablet 03/31/19 20 Active fenofibrate nanocrystallized (TRICOR) 48 mg tablet 03/31/19 20 Active glipiZIDE (GLUCOTROL) 10 mg tablet 03/31/19 20 Active hydroCHLOROthiazide (HCTZ) 25 mg tablet 03/31/19 20 Active metFORMIN (GLUCOPHAGE) 1,000 mg tablet 03/31/19 20 Active PARoxetine (PAXIL) 40 mg tablet 03/31/19 20 Active simvastatin (ZOCOR) 40 mg tablet 03/31/19 20 Active polyethylene glycol-electrolyte (GOLYTELY) 236-22.74-6.74 -5.86 gram suspensionIndication s:Encounter for screening colonoscopy Drink 2 liters the day before the procedure and 2 liters 6 hours prior to procedure. 4000 mL 03/13/19 25 Active Active Problems Problem Noted Date Diagnosed Date Colon polyp 04/22/2024 Overview (04/22/2024): Colonoscopy 04/2024 TA, repeat in 5 years Social History Tobacco Use Types Packs/Day Years Used Date Smoking Tobacco: Never Smokeless Tobacco: Never Tobacco Cessation:Counseling Given: Yes Social Connections Answer Date Recorded Frequency of Communication with Friends and Fami ly Not on file 02/18/2021 Financial Resource Strain Answer Date R ecorded Difficulty of Paying Living Expenses Not on file 02/18/2021 Difficulty of Paying Living Expenses Not on file 02/18/2021 Comments Unknown Sex and Gender Information Value Date Recorded Sex Assigned at Not on file Legal Sex Female 6:24 AM TELESALES AGENT Gender Identity Not on file Sexual Orientation Not on file Obstetrics History Last Filed Vital Signs Vital Sign Reading Time Taken Comments Blood Pressure 140/72 04/29/2019 2:05 PM CDT man ual cuff Pulse 66 04/29/2019 2:05 PM CDT Temperature - - Respiratory Rate - - Oxygen Saturation 98% 04/29/2019 2:05 PM CDT Inhaled Oxygen Concentration - - Weight 88 kg (194 lb) 04/29/2019 2:05 PM CDT Height - - Body Mass Index - - Plan of Treatment Health Maintenance Due Date Last Done Comments Tdap 09/14/1961 Depression screening for age 12+ 1964 BMI (ht and wt on same day) for age 18+ 1970 Hepatitis C screening for age 18-79 1970 Tetanus booster 1972 Lipids for age 45-75 1997 Mammogram for age 45-75 1997 Pneumococcal series for age 50+ (1 of 1 - PCV) 2002 Zoster (shingles) series for age 50+ (1 of 2) 2002 DEXA/DXA scan for age 65+ 2017 Medicare Wellness for age 65+ 2017 COVID-19 vaccine series ( season) 2023 01/02/2021, 05/13/2020, 04/22/2020 Influenza Vaccine (Season Ended) 2024 RSV vaccine for adults or (1 - 1-dose 75+ series) 09/14/2027 Colonoscopy through age 75 04/17/202904/17, 04/17/2024, 05/19/2018, Additional history exists Hepatitis B series for 19+ Aged Out N o longer eligible based on patient's age to complete this topic Procedures Procedure Name Priority Date/Time Associated Diagnosis Comments COLONOSCOPY SCREENING Routine 04/17/2024 8:09 AM TELESALES AGENT Encounter for screening colonoscopy from Last 3 Months or Most Recently Relevant to Health Maintenance Results * COLONOSCOPY SCREENING (05/19/2018 12:00 PM CDT) Jesus Fraire MD GI PROCEDURE ORD Final Re sult from Last 3 Months or Most Recently Relevant to Health Maintenance Insurance [employer] [place] BL[employer] MR PB ONLY Care Teams Extract Puller Relationship Specialty Start Date End Date Robe Yung MD PCP - General Family Practice 04/29/19
--- NOTE | 2024-07-23 06:59 | CRLHL7_ITS ---
For Patients: As a result of the Century Cures Act, medical imaging exams and procedure reports are released immediately into your electronic medical record. You may view this report before your referring provider. If you have questions, please contact your health care provider. INDICATION: Atrial fibrillation, new onset. COMPARISON: None TECHNIQUE: PA and lateral views of the chest were acquired FINDINGS: TUBES AND LINES: None. HEART AND MEDIASTINUM: Heart size top normal. LUNGS AND PLEURAL SPACES: The lungs appear normal.The pleural spaces are unremarkable. OSSEOUS STRUCTURES: Age-appropriate appearance. No acute focal finding. IMPRESSION: Heart size top-normal. No evidence of active pulmonary disease. No evidence of CHF/pulmonary edema. Dictated by Micheal Castañeda MD @ 07/23/2024 7:21:04 AM (Electronically Signed)
--- NOTE | 2024-07-23 07:03 | ED.GENADULT ---
HPI - General Adult General Chief complaint: Arrhythmia/Palpitations Stated complaint: fast heart palpitations Time Seen by Provider: 07/23/24 06:40 Source: patient Mode of arrival: ambulatory Limitations: no limitations History of Present Illness HPI narrative: 73-year-old female presents the ED for evaluation of fast, irregular heart rate. 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 Intermittently over the last few days, especially with morning awakening, she has woken to a feeling of a fast irregular heart rate with her heart pounding in her ears. No severe shortness of breath or chest pain associated with this. She does feel sweaty when it happens, episodes seem to be lasting less than an hour. She tried taking her own heart rate but found it difficult due to the fast speed. It happened again this morning at about 3:00 a.m., lasting longer than usual. At 4:30 a.m. she took her typical morning atenolol and baby aspirin and then noticed that her heart rate seem to slow and was still irregular. By the time she had made the decision to come to the emergency department at around 6:00 a.m., it had resolves completely back to normal. She does feel like it is regular now. She has no prior history of echo, stress test, prior arrhythmia or Holter monitor. She does have a family history of arrhythmia in her 2 younger brothers, it does sound like AFib per her description. She does not have a history of sleep apnea. She is not a regular alcohol drinker, has not had any stimulant use. No prior history of other arrhythmias in herself. She has had no recent changes in her medications other than more regular use of her Mirapex which she had just been using intermittently for restless leg. Uncomplicated knee scope 3 weeks ago, uncomplicated total knee arthroplasty a few years ago. Not anticoagulated regularly. No stents or coronary artery disease. Nonsmoker. Past medical history notable for obesity, hypertension, type 2 diabetes, hyperlipidemia. Home meds are atenolol paroxetine hydrochlorothiazide glipizide Glucophage simvastatin fenofibrate Fosamax and Mirapex. Allergy to penicillin. ROS notable for the cardiac symptoms only, otherwise denies times 12 systems. Related Data Home Medications ?Medication ?Instructions ?Recorded ?Confirmed cholecalciferol (vitamin D3) 50 2,000 unit PO DAILY 09/11/21 07/23/24 mcg (2,000 unit) capsule calcium carbonate (Calcium 600) 1,200 mg PO QDAY 09/12/21 07/23/24 coenzyme Q10 100 mg capsule 100 mg PO DAILY 09/12/21 07/23/24 glucosamine HCl 1,500 mg tablet 1,500 mg PO QDAY 09/12/21 07/23/24 multivitamin (Daily Multi-Vitamin 1 tab PO QDAY 09/12/21 07/23/24 tablet) zinc gluconate 30 mg tablet 30 mg PO QDAY 09/12/21 07/23/24 magnesium 250 mg tablet 500 mg PO QDAY 02/19/23 07/23/24 aspirin 81 mg tablet,delayed 81 mg PO QDAY 03/19/24 07/23/24 release clindamycin phosphate 1 % lotion 1 applic topical BID 07/23/24 07/23/24 clobetasol 0.05 % topical cream 1 applic topical BID 07/23/24 07/23/24 metronidazole 0.75 % topical cream 1 applic topical BID 07/23/24 07/23/24 Previous Rx's ?Medication ?Instructions ?Recorded lorazepam 0.5 mg tablet 0.5 mg PO QDAY PRN anxiety #30 tabs 07/19/23 atenolol 25 mg tablet 25 mg PO QAM #90 tabs 03/23/24 fenofibrate nanocrystallized 48 mg 48 mg PO QDAY #90 tabs 03/23/24 tablet metformin 1,000 mg tablet 1,000 mg PO BID #180 tabs 03/23/24 glipizide 10 mg tablet, extended 10 mg PO QDAY #90 tabs 03/27/24 release 24 hr alendronate 70 mg tablet 70 mg PO QWEEK #12 tabs 06/01/24 hydrochlorothiazide 25 mg tablet 25 mg PO QAM #90 tabs 06/01/24 simvastatin 40 mg tablet 40 mg PO QPM #90 tabs 06/22/24 paroxetine HCl 40 mg tablet 40 mg PO QDAY #90 tabs 06/29/24 ropinirole 0.5 mg tablet 0.25 mg (1/2 x 0.5 mg) PO QHS PRN 06/29/24 takes as needed #45 tabs Allergies Allergy/AdvReac Type Severity Reaction Status Date / Time nickel Allergy Intermediate Rash Verified 07/23/24 06:33 penicillin V Allergy Mild Rash Verified 07/23/24 06:33 [facility] Medical History Type 2 diabetes mellitus (09/23/08) ?E11.9 - Type 2 diabetes mellitus without complications (ICD-10) Hypertension (09/23/08) ?I10 - Essential (primary) hypertension (ICD-10) Hyperlipidemia (03/11/06) ?E78.5 - Hyperlipidemia, unspecified (ICD-10) Anxiety (09/23/08) ?F41.9 - Anxiety disorder, unspecified (ICD-10) Restless leg ?G25.81 - Restless legs syndrome (ICD-10) Osteoporosis ?M81.0 - Age-related osteoporosis without current pathological fracture (ICD-10) Calculus of right kidney ?N20.0 - Calculus of kidney (ICD-10) Osteoarthritis of right knee ?M17.11 - Unilateral primary osteoarthritis, right knee (ICD-10) Colon polyp (09/23/08) ?K63.5 - Polyp of colon (ICD-10) Acquired trigger finger ?M65.30 - Trigger finger, unspecified finger (ICD-10) Obesity (07/20/10) ?E66.9 - Obesity, unspecified (ICD-10) Lumbar compression fracture ?S32.000A - Wedge compression fracture of unspecified lumbar vertebra, initial encounter for closed fracture (ICD-10) Eustachian tube dysfunction ?H69.80 - Other specified disorders of Eustachian tube, unspecified ear (ICD-10) Hypertriglyceridemia (09/23/08) ?E78.1 - Pure hyperglyceridemia (ICD-10) Surgical History H/O arthroscopy of left knee (07/02/24) ?Z98.890 - Other specified postprocedural states (ICD-10) Status post left knee replacement (08/15/23) ?Z96.652 - Presence of left artificial knee joint (ICD-10) History of bilateral cataract extraction ?Z98.41 - Cataract extraction status, right eye (ICD-10) ?Z98.42 - Cataract extraction status, left eye (ICD-10) History of arthroplasty of finger of left hand (02/04/13) ?Z96.692 - Finger-joint replacement of left hand (ICD-10) S/P trigger finger release (03/11/14) ?Z98.890 - Other specified postprocedural states (ICD-10) H/O arthroscopy of left knee (08/11/14) ?Z98.890 - Other specified postprocedural states (ICD-10) S/P breast biopsy, left (11/22/15) ?Z98.890 - Other specified postprocedural states (ICD-10) S/P tendon repair ?Z98.890 - Other specified postprocedural states (ICD-10) H/O thumb surgery (03/11/14) ?Z98.890 - Other specified postprocedural states (ICD-10) History of tubal ligation (09/23/08) ?Z98.51 - Tubal ligation status (ICD-10) History of tonsillectomy (09/23/08) ?Z90.89 - Acquired absence of other organs (ICD-10) History of endometrial ablation (08/02/04) ?Z98.890 - Other specified postprocedural states (ICD-10) History of colonoscopy ?Z98.890 - Other specified postprocedural states (ICD-10) Social History What is your current living situation?: I presently have a place to live Problems where you live: no known problems In the past 12 months, utilities in danger of being shut off: no In past 12 months, lack of transportation kept you from medical appts, meetings, work, or getting things needed for daily living: no In the past 12 mos, have been you worried that your food would run out before you had money to buy more?: never true In the past 12 mos, the food you bought just didn't last and you didn't have money to buy more?: never true Highest level of school completed/degree received: decline to answer Smoking Status: Never smoker Do you use any of these nicotine containing products: None Second hand tobacco smoke exposure: No How often do you have a drink containing alcohol: monthly or less Alcohol type: beer How many standard drinks containing alcohol do you have on a typical day: 1 or 2 How often do you have six or more drinks on one occasion: Never AUDIT-C Alcohol total score: 1 Non-prescribed substance use: denies use Caffeine: Yes How often does anyone, including family, friends and others, physically hurt you: never How often does anyone, including family, friends and others, insult or talk down to you: never How often does anyone, including family, friends and others, threaten you with harm: never How often does anyone, including family, friends and others, scream or curse at you: never Are you using contraception or practicing any form of control: No service: No Exam Const: Vital Signs, click to edit/add: Vital Signs - 24 hr 07/23/24 06:31 07/23/24 06:38 07/23/24 07:01 Temperature 98.4 F Pulse Rate 79 Pulse Rate [Right Pulse Oximeter] 77 Respiratory Rate 20 13 Blood Pressure [Ri ght Upper Arm] 144/105 H Pulse Oximetry 98 98 97 Oxygen Delivery Me thod Room Air 07/23/24 07:30 Temperature Pulse Rate 74 Pulse Rate [Right Pulse Oximeter] Respiratory Rate 12 Blood Pressure [Ri ght Upper Arm] Pulse Oximetry 98 Oxygen Delivery Me thod Documenting provider has reviewed patient's vital signs: yes Common normals: no apparent distress and alert General appearance: cooperative, comfortable and well kempt HENMT: Common normals: normocephalic, moist oral mucous membranes and oropharynx normal Head and scalp: normocephalic Eye: Common normals: conjunctivae normal General eye: normal appearance of both eyes Conjunctiva: conjunctiva(e) normal Neck & C-Spine: General: normal visual inspection Chest: Common normals: inspection of chest normal Resp: Common normals: normal respiratory effort and clear to auscultation bilaterally Effort & inspection: able to speak in complete sentences Auscultation: clear to auscultation bilaterally Cardio: Common normals: regular rate, regular rhythm, S1 normal heart sound, S2 normal heart sound and no murmurs Rate: regular rate Rhythm: regular rhythm Heart sounds: S1 normal and S2 normal GI: Common normals: Normal to inspection, nondistended, normoactive bowel sounds present, soft to palpation, non-tender, no hepatosplenomegaly and no masses Palpation: soft and no hepatosplenomegaly Extremity: Common normals: normal to inspection, full ROM and normal capillary refill General: normal exam except as noted Neuro: Common normals: moves all extremities Sensorium/orientation: alert Speech: speech normal Psych: Common normals: thought process normal Appearance: well kempt Attitude: engaged Activity/motor behavior: appropriate eye contact Mood and affect: euthymic mood Thought process: normal thought process Memory/cognition: memory grossly intact Insight: insight good Judgement: judgment good Skin: Common normals: no rashes or lesions noted General skin exam: no rashes or lesions noted Course Course ED Course: 73-year-old female with no prior cardiac history presenting with a history of rapid, irregular heart rate highly suspicious for intermittent atrial fibrillation. Cannot exclude other arrhythmia, coronary artery disease, esophageal spasm, respiratory process, amongst others but highly suspicious for atrial fibrillation. At the moment, patient is back in normal sinus rhythm which is reassuring, she is asymptomatic at the moment as well. Will obtain chest x-ray, typical cardiac lab workup, longer on director cardiac and obtain 12 lead EKG. Patient has already taken her atenolol which did seem helpful for her. She may benefit from a slightly higher dose and I do think that her blood pressure would tolerate this. I would recommend that we start anticoagulation. If we are unable to catch the arrhythmia in the act, we will send home with a ZIO patch monitor. Will need an outpatient echo as well. Await findings. Reevaluation(s) Time of Reevaluation #1: 08:05 Reevaluation #1: Patient has been monitored for an hour and 45 minutes with no return of symptoms, she remains asymptomatic and we have not detected any abnormalities on her director cardiac. Initial workup is reassuring. I have recommended that we place a ZIO patch and patient has an outpatient echo and stress test. There really are no indications to admit to the hospital and I am not confident of the abnormal rhythm though I am suspicious of atrial fibrillation. She and I discussed the risks and benefits of starting anticoagulation and she would like to just stick with her aspirin for now, knowing that with her gender, diabetes history, she probably would be a candidate for a DOAC. She will reconsider once we have all of the usual information. I counseled her that it is okay to use an extra atenolol each day if she has breakthrough symptoms. The monitor will still pick this up. She is to keep a symptom diary to help guide us as well. Aspirin as stated above for anticoagulation. We also reviewed the alarm symptoms that would warrant coming back to the emergency department even if the workup is not yet complete. She verbalizes understanding and agreement. She will make a follow-up appointment with her primary care provider for next week to arrange echo and stress test. Vital Signs Vital signs: Initial Vital Signs Temperature 98.4 F 07/23/24 06:31 Temperature Source Temporal Artery Scan 07/23/24 06:31 Pulse Rate 77 07/23/24 06:31 Pulse Rhythm Regular 07/23/24 06:31 Pulse Strength 3+ Normal 07/23/24 06:31 Respiratory Rate 20 07/23/24 06:31 Blood Pressure 144/105 H 07/23/24 06:31 Blood Pressure Mean 118 H 07/23/24 06:31 Blood Pressure Position Supine 07/23/24 06:31 Pulse Oximetry 98 07/23/24 06:31 Oxygen Delivery Method Room Air 07/23/24 06:31 Vital Signs Temperature 98.4 F 07/23/24 06:31 Pulse Rate 77 07/23/24 06:31 Respiratory Rate 20 07/23/24 06:31 Blood Pressure 144/105 H 07/23/24 06:31 Pulse Oximetry 98 07/23/24 06:31 Oxygen Delivery Method Room Air 07/23/24 06:31 Temperature 98.4 F 07/23/24 06:31 Pulse Rate 74 07/23/24 07:30 Respiratory Rate 12 07/23/24 07:30 Blood Pressure 144/105 H 07/23/24 06:31 Pulse Oximetry 98 07/23/24 07:30 Oxygen Delivery Method Room Air 07/23/24 06:31 Medical Decision Making Lab Data Lab results reviewed: Yes I reviewed the patient's lab results Lab results narrative: Reassuring labs. Normal CBC, metabolic panel. BNP mildly elevated, not surprising. TSH reviewed from less than a year ago an outpatient labs. Labs: Lab Results 07/23/24 07/23/24 Range/Units 06:59 07:05 WBC 8.15 (4.50-11.00) K/uL RBC 4.60 (4.00-5.20) m/uL Hgb 12.7 (12.0-16.0) gm/dL Hct 40.2 (33.0-51.0) % MCV 87 (80-100) fL MCH 28 (26-34) pg MCHC 32 (32-36) gm/dL RDW Coeff of Matthew 13.7 (11.5-15.5) % Plt Count 376 (140-440) K/uL Neut % (Auto) 50.2 (42.0-72.0) % Lymph % (Auto) 35.2 (20-44) % [place] % (Auto) 9.8 (0.0-11.0) % Eos % (Auto) 4.2 (0.0-7.0) % Baso % (Auto) 0.5 (0.0-3.0) % Neut # (Auto) 4.09 (1.7-7.0) K/uL Lymph # (Auto) 2.87 (0.90-2.90) K/uL [place] # (Auto) 0.80 (0.00-0.90) K/UL Eos # (Auto) 0.34 (0.00-0.50) K/uL Baso # (Auto) 0.04 (0.00-0.30) K/uL Abs Immat Gran (auto) 0.01 (0.00-0.30) K/uL Imm/Tot Granulo (auto) 0.1 % Sodium 139 (135-149) mmol/L Potassium 4.1 (3.6-5.1) mmol/L Chloride 102 (96-114) mmol/L Carbon Dioxide 29 (20-32) mmol/L Anion Gap 8 (7-15) mEq/L BUN 22 (7-30) mg/dL Creatinine 0.7 (0.5-1.5) mg/dL Estimated Creat Clear 40.81 Estimated GFR 92 ml/min Glucose 183 H (60-115) mg/dL Calcium 9.4 (8.4-10.6) mg/dL Magnesium 1.9 (1.5-2.6) mg/dL C-Reactive Protein < 0.5 L (0.5-1.0) mg/dL NT-Pro-B Natriuret Pep 818 H (See Note) pg/mL POC Troponin I 0.02 (0.01-0.04) ng/ml Imaging Data Chest x-ray: Attestation: I have reviewed the pertinent imaging results. My impression: Normal chest x-ray. No significant cardiac enlargement, effusions, vascular changes, infiltrates or other abnormality. Radiologist's impression: IMPRESSION: Heart size top-normal. No evidence of active pulmonary disease. No evidence of CHF/pulmonary edema. Dictated by Micheal Castañeda MD @ 07/23/2024 7:21:04 AM ECG Data Attestation: I personally reviewed and interpreted this ECG as follows: Prior ECG tracings: available for review (Comparison February of 2024.) Interpretation: Sinus rhythm with a rate of 66. Biphasic enlarged P waves suggestive of atrial enlargement but otherwise no ischemic changes are acute ST abnormalities. Remainder of the intervals and axis are normal. Relatively unchanged from EKG from February. Discharge Plan Discharge Clinical Impression: Arrhythmia Patient Disposition: Home w/ Parent or Adult Condition: Improved Instructions: A-fib (Atrial Fibrillation) (ED) Additional Instructions: As we discussed, your story is very suspicious for an abnormal heart rhythm, also known as an arrhythmia. There are many types of these but based on your risk factors and the way that you describe things, I am most suspicious that this is atrial fibrillation. This is very common in women. We have ordered a monitor for you to wear the will record your heart rate continuously and give us more information. Continue taking her medications as prescribed. If you have return of symptoms, it is okay for you to take an additional atenolol tab every day to see if it will make the symptoms go away again. Most likely we will need to get a plan for a stronger blood thinner but do need a little more information about which abnormal heart rhythm is happening 1st. We do tend to get this information fairly quickly. I would also recommend follow-up soon with her primary care provider to arrange an echo which is an ultrasound of the heart and a stress test. We use these findings to determine the best course of treatment for you. If you have significant dizziness, severe shortness of breath, significant persistent chest pain or other signs of major abnormality, please return to the emergency department in the meantime, even if the workup is not complete. Continue the rest of your medications as prescribed. Activity Level: Activity as Tolerated Discharge Diet: Regular Prescriptions: No Action cholecalciferol (vitamin D3) 50 mcg (2,000 unit) capsule 2,000 unit PO DAILY magnesium 250 mg tablet 500 mg PO QDAY aspirin 81 mg tablet,delayed release (DR/EC) 81 mg PO QDAY coenzyme Q10 100 mg capsule 100 mg PO DAILY zinc gluconate 30 mg tablet 30 mg PO QDAY multivitamin [Daily Multi-Vitamin] Tablet 1 tab PO QDAY glucosamine HCl 1,500 mg tablet 1,500 mg PO QDAY Rx Instructions: administer with a meal calcium carbonate [Calcium 600] 600 mg calcium (1,500 mg) tablet 1,200 mg PO QDAY paroxetine HCl 40 mg tablet 40 mg PO QDAY Qty: 90 3RF ropinirole 0.5 mg tablet 0.25 mg PO QHS PRN (Reason: takes as needed) Qty: 45 3RF Patient Comments: not filled yet, new prescription Rx Instructions: administer 1-3 hours before bedtime clindamycin phosphate 1 % lotion 1 applic topical BID clobetasol 0.05 % cream 1 applic topical BID metronidazole 0.75 % cream 1 applic topical BID lorazepam 0.5 mg tablet 0.5 mg PO QDAY PRN (Reason: anxiety) Qty: 30 2RF atenolol 25 mg tablet 25 mg PO QAM Qty: 90 1RF fenofibrate nanocrystallized 48 mg tablet 48 mg PO QDAY Qty: 90 3RF metformin 1,000 mg tablet 1,000 mg PO BID Qty: 180 3RF glipizide 10 mg tablet extended release 24hr 10 mg PO QDAY Qty: 90 3RF hydrochlorothiazide 25 mg tablet 25 mg PO QAM Qty: 90 1RF alendronate 70 mg tablet 70 mg PO QWEEK Qty: 12 2RF simvastatin 40 mg tablet 40 mg PO QPM Qty: 90 0RF Follow Up/Referrals: Robe Yung MD [Primary Care Provider, Family Practice] - 7 Days Referral Note: New onset arrhythmia. Recommend echo and stress test. ZIO ordered Stand Alone [facility]: [facility] Instructions
[2024-07-23 07:14] LABS: Basophils Absolute Auto 0.04 K/uL (0.00-0.30); Basophils Percent Auto 0.5 % (0.0-3.0); Eosinophils Absolute Auto 0.34 K/uL (0.00-0.50); Eosinophils Percent Auto 4.2 % (0.0-7.0); Hematocrit* 40.2 % (33.0-51.0); Hemoglobin* 12.7 gm/dL (12.0-16.0); Immature Granulocytes Abs Auto 0.01 K/uL (0.00-0.30); Immature Granulocytes Pct Auto 0.1 %; Lymphocytes Absolute Auto 2.87 K/uL (0.90-2.90); Lymphocytes Percent Auto 35.2 % (20-44); Mean Corpuscular HGB Conc 32 gm/dL (32-36); Mean Corpuscular Hemoglobin 28 pg (26-34); Mean Corpuscular Volume 87 fL (80-100); Monocytes Percent Auto 9.8 % (0.0-11.0); Neutrophils Absolute Auto 4.09 K/uL (1.7-7.0); Neutrophils Percent Auto 50.2 % (42.0-72.0); Platelet Count* 376 K/uL (140-440); RDW Coefficient of Variation % 13.7 % (11.5-15.5); White Blood Count* 8.15 K/uL (4.50-11.00)
[2024-07-23 07:18] LABS: Slide Review Reflex No
[2024-07-23 07:21] LABS: Troponin, Point-of-Care* 0.02 ng/ml (0.01-0.04)
[2024-07-23 07:31] LABS: Chloride* 102 mmol/L (96-114); Potassium* 4.1 mmol/L (3.6-5.1); Sodium* 139 mmol/L (135-149)
[2024-07-23 07:34] LABS: Blood Urea Nitrogen* 22 mg/dL (7-30); Creatinine* 0.7 mg/dL (0.5-1.5); Est. Creatinine Clearance* 40.81; Estimated Glomerular Filt Rate 92 ml/min
[2024-07-23 07:35] LABS: Anion Gap 8 mEq/L (7-15); Calcium* 9.4 mg/dL (8.4-10.6); Carbon Dioxide* 29 mmol/L (20-32); Glucose* 183 mg/dL (60-115); Magnesium* 1.9 mg/dL (1.5-2.6)
[2024-07-23 07:38] LABS: C Reactive Protein* < 0.5 mg/dL (0.5-1.0)
[2024-07-23 07:48] LABS: NT Pro B Type NatriureticPept* 818 pg/mL (See Note)
== END 2024-07-23 08:46 | disposition home or self-care (01) ==
PROVIDERS: Emergency Provider Family Medicine; PCP Family Medicine
DX: I49.9 Cardiac arrhythmia, unspecified (principal)
CPT/HCPCS: 36415; 71046; 80048; 83735; 83880; 84484; 85025; 86140; 93005; 93246; 94761; 99284; 99285